=== PATIENT | female | born 1995 | race Caucasian/White ===

== ENCOUNTER 2022-10-21 11:33 | Outpatient (CLI) | payer OTHER, SELFPAY ==
--- NOTE | ~2022-10-21 | XR_ITS ---
EXAMINATION: XR hysterosalpingogram DATE: 10/21/2022 12:17 INDICATION: Infertility. TECHNIQUE: Fluoroscopy was performed by the radiologist during contrast infusion into the endometrial cavity of the uterus by the primary physician. Fluoroscopy exposure time was 0.2 minutes. The total number of images was 5. FINDINGS: The intrauterine cavity is normal in morphology. The fallopian tubes are normal in caliber. There is normal free intraperitoneal spillage of contrast bilaterally. IMPRESSION: 1. Normal hysterosalpingogram. Reviewed, dictated and finalized at location A. [facility]
== END 2022-10-21 11:34 | disposition home or self-care (01) ==
PROVIDERS: PCP Obstetrics & Gynecology; Visit Provider Obstetrics & Gynecology
DX: N97.9 Female infertility, unspecified (principal)
CPT/HCPCS: 58340; 74740

== ENCOUNTER 2023-09-13 16:49 | Outpatient (CLI) | payer OTHER, SELFPAY ==
[2023-09-13] VITALS (10 sets, daily range): BP systolic 130–159; BP diastolic 75–92; PULSE 54–69
[2023-09-13 17:39] LABS: Basophils Percent Auto 0.3 % (0.2-1.2); Eosinophils Absolute Auto 0.1 K/mm3 (0-0.3); Eosinophils Percent Auto 1.1 % (0-4.4); Hematocrit 34.2 % (37.0-47.0); Hemoglobin 11.1 g/dL (12.0-15.0); Immature Granulocyte Absolute 0.06 K/mm3 (0.00-0.031); Immature Granulocyte Percent A 0.7 % (0-0.5); Lymphocytes Absolute Auto 2.09 K/mm3 (0.9-3.2); Lymphocytes Percent Auto 22.8 % (18.3-44.2); Mean Corpuscular HGB Conc 32.5 g/dl (32-36); Mean Corpuscular Hemoglobin 32.6 pg (26-34); Mean Corpuscular Volume 100.6 fl (80-100); Mean Platelet Volume 10.4 fl (7.4-10.4); Monocytes Absolute Auto 1.1 K/mm3 (0.1-0.6); Monocytes Percent Auto 11.7 % (2.6-8.5); Neutrophils Absolute Auto 5.8 K/mm3 (1.3-6.7); Neutrophils Percent Auto 63.4 % (45.5-73.1); Platelet Count Result 216 k/mm3 (150-375); Red Cell Distribution Width 12.9 % (11.5-14.5); White Blood Count 9.2 K/mm3 (4.5-10.0)
[2023-09-13 17:49] LABS: Alanine Aminotransferase 15 U/L (6-35); Alkaline Phosphatase 155 U/L (38-126); Anion Gap 5 mmol/L (8-16); Aspartate Amino Transferase 29 U/L (14-36); Bilirubin,Total 0.3 mg/dL (0.2-1.3); Blood Urea Nitrogen 12 mg/dL (7-17); Calcium 8.3 mg/dL (8.4-10.2); Carbon Dioxide 18 mmol/L (22-30); Chloride 108 mmol/L (98-107); Estimated Glomerular Filt Rate > 60; Glucose 84 mg/dL (65-110); Potassium 3.8 mmol/L (3.4-5.0); Sodium 131 mmol/L (137-145); Uric Acid 5.7 mg/dL (2.5-7.5)
[2023-09-13 18:11] LABS: Appearance Urine Clear (Clear); Bacteria Urine 4+ /hpf; Bilirubin Urine Negative (Negative); Blood Urine Negative (Negative); Color Urine Yellow (Yellow); Glucose Urine UA Negative (Negative); Ketones Urine Negative (Negative); Leukocyte Esterase Ur 2+ LEU/UL (NEGATIVE); Nitrate Urine Positive (Negative); Non Pathogenic Casts 0-2; Protein Urine 2+ mg/dL (Negative); RBC Urine 0-2 /hpf (0-2); Specific Grav Ur 1.009 (1.001-1.035); Squamous Epithelial Cell Urine Occasional /hpf (Few); Urobilinogen Urine 0.2 mg/dL (<2.0); WBC Urine 51-100 /hpf (0-3); pH Urine 7.5 (5.0-9.0)
[2023-09-13 18:30] LABS: Add Urine Microscopic? YES
[2023-09-13 18:35] LABS: Creatinine Urine 46.2 mg/dL; Total Protein Urine Random 161 mg/dL; Ur Ttl Prot Creatinine Ratio 3.48 mg/mg (0-0.20)
--- NOTE | 2023-09-13 19:09 | PC.NURSE ---
called Dr. Elsa Sutherland reported BP and PIH lab result. discharge order received with follow up office for BP on wed or
== END 2023-09-13 19:10 | disposition home or self-care (01) ==
LOC: ANHOBOP 16:57 → ANHLDR 16:57
PROVIDERS: Visit Provider Obstetrics & Gynecology
DX: O13.9 Gestational [pregnancy-induced] hypertension without significant proteinuria, unspecified trimester (principal); Z3A.00 Weeks of gestation of pregnancy not specified
CPT/HCPCS: 36415; 59025; 80053; 81001; 82570; 84156; 84550; 85025; 87077; 87086; 87186; 99199

== ENCOUNTER 2023-09-21 15:01 | Inpatient (IN) | payer OTHER, SELFPAY ==
[2023-09-21] VITALS (12 sets, daily range): BP systolic 138–164; BP diastolic 66–96; PULSE 53–77; RESP 18; TEMP 36.4–36.9; O2SAT 96; BMI 28.3
--- NOTE | 2023-09-21 15:49 | PC.NURSE ---
Dr. Elsa Sutherland returned page and informed this 36 wk G1 here for NST due to hypertension in and BP's have been 148/96 and 145/91. Pt last had labs done on 09/13. Pt denies headache, visual disturbance, epigastric RUQ pain, pitting edema in ankles, and normal reflexes. Order received to draw labs and give a dose of Celestone.
--- NOTE | 2023-09-21 15:55 | PC.NURSE ---
Pt informed of plan to draw labs and give Celestone. Discussed purpose of Celestone with pt. Pt verbalizes understanding.
--- NOTE | 2023-09-21 16:04 | PM.OBTRLD ---
OB - Triage/Final Diagnosis Visit Information Date of evaluation: 09/21/23 Reason for evaluation: other (gestational hypertension) Comments/Additional reasons for admission: I have assessed the risk for this patient, Romina Ferrari, and determined that she would benefit from observation care.
[2023-09-21] MEDS: BETAMETHASONE SOD PHOS/ACETATE 30 MG/5 ML VIAL 12 MG IM (16:34)
--- NOTE | 2023-09-21 16:52 | PC.NURSE ---
Dr. Elsa Sutherland returned page and informed of lab results with comparison to results from 09/13. Informed pt had a BP of 170/97 when Ashley Duncan RN went into pt room to give the Celestone. Repeat was 155/95. Order received to discharge to home to complete 24 hr urine and bring back tomorrow when she comes for repeat Celestone and do a BP check.
--- NOTE | 2023-09-21 17:04 | PC.NURSE ---
Dr. Elsa Sutherland returned page and informed pt's last BP was 160/95 and she reported having some spots in her vision earlier that have resolved. Orders received to change to observation status for pt to stay overnight and complete 24 hr urine. Orders received to start Labetalol and NST q 8 hr.
--- NOTE | 2023-09-21 17:10 | PC.NURSE ---
24 hr urine start time is 1600
[2023-09-21] MEDS: LABETALOL HCL 100 MG TABLET 200 MG PO (17:45)
--- NOTE | 2023-09-21 17:45 | OBADM ---
This patient, Romina Ferrari, admitted to the OB room 113 for observation for hypertension in . Patient/family oriented to hospital policies and general routines including ID bracelet, bed and alarms, visiting hours, pain management, procedures, bathroom and other care routines, personal items, smoking policy, room service/diet, and visiting hours. Patient/Family are encouraged to report perceived risks to care and to ask questions if they do not understand what they are told or what they should do.
[2023-09-21 21:26] LABS: Appearance Urine Clear (Clear); Bacteria Urine 1+ /hpf; Bilirubin Urine Negative (Negative); Blood Urine Negative (Negative); Color Urine Yellow (Yellow); Glucose Urine UA Negative (Negative); Ketones Urine Negative (Negative); Leukocyte Esterase Ur 1+ LEU/UL (Negative); Nitrate Urine Positive (Negative); Non Pathogenic Casts 0-2; Protein Urine 3+ mg/dL (Negative); RBC Urine 0-2 /hpf (0-2); Specific Grav Ur 1.009 (1.001-1.035); Squamous Epithelial Cell Urine None seen /hpf (Few); Urobilinogen Urine 0.2 mg/dL (<2.0)
[2023-09-21 21:29] LABS: Add Urine Microscopic? YES
[2023-09-22] VITALS (18 sets, daily range): BP systolic 128–158; BP diastolic 63–94; PULSE 70–94; TEMP 36.4–36.6; O2SAT 93–98; BMI 28.3
--- NOTE | 2023-09-22 06:57 | PM.IMHP ---
H&P: HPI History of Present Illness Date/Time: 09/22/23 06:57 Chief Complaint: Elevated blood pressures Narrative: this is a 28-year-old 1 para 0 who is admitted for observation secondary to elevated blood pressures. Her blood pressures been up for about week. Earlier she had some headache and some visual changes but that has improved. PIH labs so far been normal. She is admitted for observation and steroids at 36 and half weeks gestation. [facility] Family History Family History Sibling Non-Hodgkin lymphoma Grandparent Oral cancer Social History Social History Substance use: never Spiritual care concerns: No Meds Home Medications and Allergies Home Medications Medication Instructions Recorded Confirmed Type vits no.126-ferrous fum 1 tablet PO DAILY 09/21/23 09/21/23 History 28 mg iron-folic acid 800 mcg tablet (Classic ) Allergies Allergy/AdvReac Type Severity Reaction Status Date / Time No Known Allergies Allergy Verified 09/21/23 15:12 Vital Signs Vital Signs - 24 hr 09/21/23 17:30 09/21/23 17:44 09/21/23 18:00 Temperature Pulse Rate 66 55 L 53 L Respiratory Rate Blood Pressure 145/91 H 164/88 H 155/90 H Blood Pressure [Left Arm] Pulse Oximetry Oxygen Delivery 09/21/23 18:30 09/21/23 18:32 09/21/23 19:00 Temperature Pulse Rate 70 63 62 Respiratory Rate Blood Pressure 148/90 H 163/84 H 147/82 H Blood Pressure [Left Arm] Pulse Oximetry Oxygen Delivery 09/21/23 19:16 09/21/23 15:40 09/21/23 17:00 Temperature 97.5 F L Pulse Rate 67 56 L Respiratory Rate Blood Pressure 148/96 H 160/95 H Blood Pressure [Left Arm] Pulse Oximetry Oxygen Delivery 09/21/23 21:28 09/21/23 22:31 09/22/23 03:01 Temperature Pulse Rate 77 66 82 Respiratory Rate Blood Pressure 141/73 H 138/66 152/89 H Blood Pressure [Left Arm] Pulse Oximetry 96 Oxygen Delivery 09/22/23 06:48 09/21/23 17:45 09/21/23 17:45 Temperature 98.4 F Pulse Rate 89 56 L 56 L Respiratory Rate 18 Blood Pressure 138/83 164/88 H Blood Pressure [Left Arm] Pulse Oximetry Oxygen Delivery 09/21/23 17:45 09/21/23 15:40 Temperature Pulse Rate 60 Respiratory Rate Blood Pressure Blood Pressure [Left Arm] 148/96 H Pulse Oximetry Oxygen Delivery Room Air Exam Const: General: cooperative, healthy appearing and comfortable Nutritional Appearance: average body habitus Orientation/consciousness: oriented to person, oriented to place and oriented to time HENMT: Head: normal to inspection Resp: Effort & Inspection: normal respiratory effort Cardio: Rate: regular rate Rhythm: regular rhythm Heart sounds: S1 normal heart sound present and S2 normal heart sound present GI: Inspection: normal to inspection ( Soft gravid uterus) : External Female Exam: normal external appearance Speculum Exam - Vagina: normal appearance of the vagina Speculum Exam - Cervix: Other cervical findings present ( heart tones were reassuring) H&P: Results Labs Labs: Urine 09/21/23 Range/Units 16:09 Urine Color Yellow (Yellow) Urine Appearance Clear (Clear) Urine pH 7.0 (5.0-9.0) Ur Specific [place] 1.009 (1.001-1.035) Urine Protein 3+ H (Negative) mg/dL Urine Glucose (UA) Negative (Negative) mg/dL Assessment and Plan Assessment and plan (1) 36 weeks gestation of : Code(s): Z3A.36 - 36 weeks gestation of Status: Acute (2) Gestational hypertension: Code(s): O13.9 - Gestational [-induced] hypertension without significant proteinuria, unspecified trimester Status: Acute Plan observation. 24hour urine. Labetalol treatment. Steroids. Consider delivery with if worsening
--- NOTE | 2023-09-22 07:08 | PC.NURSE ---
RN at bedside to perform head to toe assessment. Patient denies headache, vision changes, new edema, abdominal pain. Patient has slight edema in bilateral ankles. Nonpitting. MD at bedside speaking with patient. Patient to stay today at least long enough to receive second dose of steroids and receive results of 24 hour urine collection. Patient and spouse agree with plan of care and have no questions at this time.
[2023-09-22] MEDS: LABETALOL HCL 100 MG TABLET 200 MG PO ×2 (08:14→16:21)
--- NOTE | 2023-09-22 16:19 | PM.OBPNLAB ---
Pain Control Date/time seen: 09/22/23 16:19 Comments: BP well controlled on labetalol. Waiting 24hour urine. Will receive steroid and hope for delivery at 37 weeks
[2023-09-22] MEDS: BETAMETHASONE SOD PHOS/ACETATE 30 MG/5 ML VIAL 12 MG IM (16:22)
[2023-09-22 16:58] LABS: Collection Time Urine 24 HOURS
[2023-09-22 17:05] LABS: Patient Weight 175 Lbs; Total Volume 24 Hour Urine 1800 ml
[2023-09-22 17:12] LABS: Creatinine Clearance Urine 114.4 ml/min (75-125); Creatinine Urine 89.7 mg/dL
[2023-09-22 17:19] LABS: Total Protein Urine 24 Hr 8352 mg/24hr (28-141); Total Protein Urine Random 464 mg/dL
--- NOTE | 2023-09-22 17:31 | PC.NURSE ---
MD notified of elevated 24 hour urine results. Orders received to keep patient and induce.
--- NOTE | 2023-09-22 18:26 | LDADM ---
This patient, Romina Ferrari, was admitted to Labor/Delivery/Recovery 105 on 09/22/23 at 17:50. Plans for labor, pain management and were discussed with patient. Patient/family oriented to hospital policies and general routines including ID bracelet, bed and alarms, visiting hours, pain management, procedures, bathroom and other care routines, personal items, smoking policy, room service/diet and guest tray routines, security routines, and visiting hours. Patient/Family are encouraged to report perceived risks to care and to ask questions if they do not understand what they are told or what they should do. See OBIX for further documentation.
[2023-09-22 18:47] LABS: Basophils Percent Auto 0.1 % (0.2-1.2); Hematocrit 32.9 % (37.0-47.0); Immature Granulocyte Absolute 0.21 K/mm3 (0.00-0.031); Immature Granulocyte Percent A 1.5 % (0-0.5); Lymphocytes Absolute Auto 1.38 K/mm3 (0.9-3.2); Lymphocytes Percent Auto 9.8 % (18.3-44.2); Mean Corpuscular HGB Conc 33.4 g/dl (32-36); Mean Corpuscular Hemoglobin 32.5 pg (26-34); Mean Corpuscular Volume 97.3 fl (80-100); Mean Platelet Volume 10.7 fl (7.4-10.4); Monocytes Absolute Auto 1.3 K/mm3 (0.1-0.6); Monocytes Percent Auto 9.1 % (2.6-8.5); Neutrophils Absolute Auto 11.1 K/mm3 (1.3-6.7); Neutrophils Percent Auto 79.5 % (45.5-73.1); Platelet Count Result 218 k/mm3 (150-375); Red Blood Count 3.38 M/mm3 (4.2-5.4); Red Cell Distribution Width 12.8 % (11.5-14.5)
[2023-09-22] MEDS: DINOPROSTONE 10 MG VAG INSERT VAGINAL (19:20)
[2023-09-22] MEDS: AMPICILLIN 2 GM/NS 100 ML 2 GM/100 ML BAG IVPB (19:30)
[2023-09-22] MEDS: LACTATED RINGERS 1,000 ML 75 ML IV CONT (20:13)
[2023-09-22] MEDS: AMPICILLIN 1 GM/NS 50 ML 1 GM/50 ML BAG IVPB (23:10)
[2023-09-22] MEDS: ZOLPIDEM TARTRATE (*CRX) 5 MG TABLET PO (23:10)
[2023-09-23] VITALS (186 sets, daily range): BP systolic 121–181; BP diastolic 66–121; PULSE 49–127; RESP 16; TEMP 36.5–37.1; O2SAT 91–98
[2023-09-23] MEDS: AMPICILLIN 1 GM/NS 50 ML 1 GM/50 ML BAG IVPB ×4 (03:05→15:55)
[2023-09-23] MEDS: LABETALOL HCL 100 MG TABLET 200 MG PO ×4 (03:17→13:02)
--- NOTE | 2023-09-23 06:36 | PM.OBPNLAB ---
Pain Control Date/time seen: 09/23/23 06:36 Comments: spilling 8000 g protein. bp ok on labetolol. Pelvic Exam Dilation (cm): 1 Effacement (%): 50 station: -1 Comments: attempted arom
[2023-09-23] MEDS: OXYTOCIN 30 UNITS/NS 500 ML 30 UNITS/500 ML BAG 6 UNITS IV CONT (07:50)
[2023-09-23] MEDS: LACTATED RINGERS 1,000 ML 75 ML IV CONT (08:36)
--- NOTE | 2023-09-23 10:55 | WPDANESEPP ---
Anes - Eval Pre Procedure Procedure: labor epidural Date/Time: 09/23/23 10:55 Preop Diagnosis: labor pain Pre Op Diagnosis: Hypotension in Patient Data Age: 28 Gender: F Height: 1.68 m Weight: 79.5 kg Last Vital Signs Temp 37.1 C 09/23/23 08:00 Pulse 62 09/23/23 10:53 Resp 16 09/23/23 03:04 BP 129/96 H 09/23/23 10:53 Pulse Ox 96 09/23/23 10:53 O2 Del Method Room Air 09/21/23 17:45 Allergies Allergy/AdvReac Type Severity Reaction Status Date / Time No Known Allergies Allergy Verified 09/22/23 18:23 Home Medications Medication Instructions Recorded Confirmed Type vits no.126-ferrous fum 1 tablet PO DAILY 09/21/23 09/22/23 History 28 mg iron-folic acid 800 mcg tablet (Classic ) Laboratory Tests 09/22/23 09/22/23 16:20 18:03 WBC 14.0 H K/mm3 (4.5-10.0) RBC 3.38 L M/mm3 (4.2-5.4) Hgb 11.0 L g/dL (12.0-15.0) Hct 32.9 L % (37.0-47.0) MCV 97.3 fl (80-100) MCH 32.5 pg (26-34) MCHC 33.4 g/dl (32-36) RDW 12.8 % (11.5-14.5) Plt Count 218 k/mm3 (150-375) MPV 10.7 H fl (7.4-10.4) Immature Gran % (Auto) 1.5 H % (0-0.5) Neut % (Auto) 79.5 H % (45.5-73.1) Lymph % (Auto) 9.8 L % (18.3-44.2) [place] % (Auto) 9.1 H % (2.6-8.5) Eos % (Auto) 0.0 % (0-4.4) Baso % (Auto) 0.1 L % (0.2-1.2) Lymph # (Auto) 1.38 K/mm3 (0.9-3.2) [place] # (Auto) 1.3 H K/mm3 (0.1-0.6) Eos # (Auto) 0.0 K/mm3 (0-0.3) Baso # (Auto) 0.0 K/mm3 (0.0-0.1) Abs Immat Gran (auto) 0.21 H K/mm3 (0.00-0.031) Absolute Neuts (auto) 11.1 H K/mm3 (1.3-6.7) Absolute Nucleated RBC 0.0 K/mm3 (0.0-0.012) Nucleated RBC % 0.0 % (0.0-0.2) U Random Total Protein 464 mg/dL Ur 24 Hour Volume 1800 ml Urine Creatinine 89.7 mg/dL Creatinine Clearance 114.4 ml/min (75-125) Ur Total Protein 24 Hr 8352 H mg/24hr (28-141) RPR Pending Blood Type O Positive Antibody Screen Negative Patient hx anesthesia problems: none Family hx anesthesia problems: none Results Review: All pre-operative results and documents have been reviewed as part of the pre-operative evaluation. [facility] Family History Family History Sibling Non-Hodgkin lymphoma Grandparent Oral cancer Social History Social History Smoking status: Never smoker Substance use: never Lack of Transportation: No Lack of Food: Never True Current Housing: I Have Housing Concerned About Future Housing: No Difficulty Paying Gas/Electric Bills: No Difficulty Paying for Meds: No Currently Unemployed: No Education: Master's Degree or Higher Difficulty w/ Childcare or Family Care: No Spiritual care concerns: No Exam Day of Procedure 09/23/23 10:55
--- NOTE | 2023-09-23 12:14 | PM.OBPNLAB ---
Pain Control Date/time seen: 09/23/23 12:14 Pain control: tolerating well and epidural Pelvic Exam Dilation (cm): 3 Effacement (%): 80 station: -1 Amniotic membrane status: Leaking Contractions Monitor mode: Internal
[2023-09-23] MEDS: SODIUM CHLORIDE 0.9% IV 300 ML 600 ML I-UTERINE (12:59)
[2023-09-23] MEDS: SODIUM CHLORIDE 0.9% IV 1,000 ML 150 ML I-UTERINE (15:30)
--- NOTE | 2023-09-23 16:18 | PM.OBPNLAB ---
Pain Control Date/time seen: 09/23/23 16:18 Pain control: tolerating well and epidural Comments: earlir variables improved on amnioinfusion Pelvic Exam Dilation (cm): 3 Effacement (%): 80 station: -1 Amniotic membrane status: Leaking Contractions Monitor mode: Internal
[2023-09-23 17:00] LABS: Rapid Plasma Reagin Non-Reactive (NonReactive)
--- NOTE | 2023-09-23 17:44 | PM.OBPNLAB ---
Pain Control Date/time seen: 09/23/23 17:44 Pain control: tolerating well and epidural Comments: Still relatively no change in the cervix with some open down variables. Blood pressure is not worsening. In later for lack of change and increasing blood pressure as well as failure of change in cervix after section. Risks and benefits reviewed great detail. She is agreeable to proceed Pelvic Exam Dilation (cm): 3 Effacement (%): 80 station: -1 Amniotic membrane status: Leaking Contractions Monitor mode: Internal
[2023-09-23] MEDS: AZITHROMYCIN 500 MG/NS 250 ML 500 MG/250 ML BAG 250 MG IVPB (17:59)
--- NOTE | 2023-09-23 19:20 | P.PCNOB_ITS ---
OB - Delivery Note Procedure Delivery date: 09/23/23 Pre-op diagnosis: Failed Induction of Labor and Preeclampsia w/o severe features Post-op Diagnosis: Same Induction method: Per Cervidil Protocol Delivery augmentation: Rupture of Membranes and Pitocin Delivery monitor: External FHT and Internal Uterine Procedure Performed: Primary Surgeon: Librado Sutherland MD Anesthesia type: Epidural Description of Procedure/Findings: The patient was taken to the back for and prepped and draped in normal sterile fashion. Under excellent epidural anesthesia the abdomen was entered Pfannenstiel fashion progressive layers to the fascia. Fascia incised midline cure number not fashion bilaterally. Underlying muscles were sharply dissected. Parietal peritoneal by Annabel clamps and by sharp dissection care. This was carried superiorly and inferiorly down the bladder. A bladder flap was formed. The bladder bladder blade returned. A low transverse incision made the head delivered in the JC position. Nuchal cord was noted to be loose x2 renal occiput. Anterior posterior shoulder delivered spontaneously. Cord clamped 15. Table with the to the waiting fiction and nonfiction prose writer. Placenta was delivered intact manually. Uterus delivered from the abdomen wrapped in a moist towel. After assuring no membranes remained in the uterus, the uterus was closed in continuous running 0 Vicryl from lateral edge to lateral edge. This was followed by 2nd imbricating running locking 0 Vicryl from lateral edge to lateral edge. Hemostasis was assured. Ovaries and tubes appeared within normal limits. Uterus returned to the abdomen. The hysterotomy incision SPECT of 1 last time noted hemostatic. Laps removed and accounted for. The fascia closed with continuous running 0 Vicryl from lateral edge to midline bilaterally. Irrigation subcutaneous layer and the skin closed with 4 Monocryl and glue. All sponge, needle, instrument counts were correct. Patient went to recovery in satisfactory condition Specimen: No Estimated Blood Loss: 455 Urine Output: 500 Drains: No Packing: No Pathology: None sent Complications: No immediate complications Condition: Stable Disposition: Floor Porter Baby Date of : 09/23/23 Time of : 19:00 Weeks of gestation at delivery: 36 Infant gender: Female Weight (pounds): 5 Weight (ounces): 10 presentation: vertex position: Right Occiput Anterior Cord Vessel Description: 3 Vessels, Nuchal Cord, Tight (x2) and Reduced score one minute: 6 score five minutes: 9
[2023-09-23] MEDS: LABETALOL HCL 100 MG TABLET 200 MG (20:39)
--- NOTE | 2023-09-23 21:52 | PC.NURSE ---
Patient transferred to post room #291 per stretcher from labor and delivery. Support person present. Oriented to unit, room, information board, rooming in, admission packet and security measures. Patient verbalizes understanding.
[2023-09-24] VITALS (7 sets, daily range): BP systolic 131–151; BP diastolic 73–83; PULSE 56–64; RESP 16–20; TEMP 36.5–37.1; O2SAT 96–97
[2023-09-24] MEDS: DEXTROSE 5%/0.45% SOD CHL 1,000 ML 125 ML IV CONT
[2023-09-24 05:42] LABS: Basophils Percent Auto 0.2 % (0.2-1.2); Hematocrit 28.4 % (37.0-47.0); Hemoglobin 9.4 g/dL (12.0-15.0); Immature Granulocyte Percent A 1.2 % (0-0.5); Lymphocytes Absolute Auto 1.38 K/mm3 (0.9-3.2); Lymphocytes Percent Auto 8.5 % (18.3-44.2); Mean Corpuscular HGB Conc 33.1 g/dl (32-36); Mean Corpuscular Hemoglobin 33.2 pg (26-34); Mean Corpuscular Volume 100.4 fl (80-100); Mean Platelet Volume 10.7 fl (7.4-10.4); Monocytes Absolute Auto 1.8 K/mm3 (0.1-0.6); Monocytes Percent Auto 10.7 % (2.6-8.5); Neutrophils Percent Auto 79.4 % (45.5-73.1); Nucleated Red Blood Cells Perc 0.2 % (0.0-0.2); Platelet Count Result 173 k/mm3 (150-375); Red Blood Count 2.83 M/mm3 (4.2-5.4); White Blood Count 16.3 K/mm3 (4.5-10.0)
--- NOTE | 2023-09-24 07:00 | PM.OBPNVD ---
OB - PN: Subj Subjective Date/time seen: 09/24/23 07:00 Patient comments: no complaints and pain well controlled baby status: doing well OB - PN: Obj Data Labs 09/24/23 05:31 Labs: Laboratory Results - last 24 hr 09/22/23 09/24/23 18:03 05:31 WBC 16.3 H RBC 2.83 L Hgb 9.4 L Hct 28.4 L MCV 100.4 H MCH 33.2 MCHC 33.1 RDW 13.0 Plt Count 173 MPV 10.7 H Immature Gran % (Auto) 1.2 H Neut % (Auto) 79.4 H Lymph % (Auto) 8.5 L [place] % (Auto) 10.7 H Eos % (Auto) 0.0 Baso % (Auto) 0.2 Lymph # (Auto) 1.38 [place] # (Auto) 1.8 H Eos # (Auto) 0.0 Baso # (Auto) 0.0 Abs Immat Gran (auto) 0.20 H Absolute Neuts (auto) 13.0 H Absolute Nucleated RBC 0.0 Nucleated RBC % 0.2 RPR Non-reactive OB - PN A/P Plan day: 1 Plan: routine care Comments: contiue labetolo Time Spent With Patient Time: Total time spent is greater than 50% in coordination of care (as documented) at patient's floor/unit and/or counseling patient: Exam Const: General: cooperative, healthy appearing and comfortable Nutritional Appearance: average body habitus Orientation/consciousness: oriented to person, oriented to place and oriented to time HENMT: Head: normal to inspection Resp: Effort & Inspection: normal respiratory effort Cardio: Rate: regular rate Rhythm: regular rhythm Heart sounds: S1 normal heart sound present and S2 normal heart sound present GI: Inspection: normal to inspection and incision (cdi)
[2023-09-24] MEDS: DOCUSATE SODIUM 100 MG CAPSULE PO ×2 (08:19→16:44)
[2023-09-24] MEDS: LABETALOL HCL 100 MG TABLET 200 MG PO ×3 (08:20→22:31)
[2023-09-24] MEDS: POLYSACCHARIDE IRON COMPLEX 150 MG CAPSULE PO ×2 (08:20→16:44)
[2023-09-24] MEDS: HYDROcodone/acetaminophen (*CRX) 5-325 MG TABLET 1 TAB PO ×2 (08:21→23:45)
[2023-09-24] MEDS: MULTIVIT/MIN/PREN/FOL AC/IRON TABLET 1 TAB PO (08:21)
--- NOTE | 2023-09-24 08:26 | PM.DS ---
DS: Admitting Diagnosis Discharge Date 09/28/2023 Admitting Diagnosis Gestational hypertension at 36 weeks DS: Discharge Diagnosis Discharge Diagnosis (1) induced hypertension, delivered, current hospitalization: Code(s): O13.4 - Gestational [-induced] hypertension without significant proteinuria, complicating childbirth Status: Acute (2) 36 weeks gestation of : Code(s): Z3A.36 - 36 weeks gestation of Status: Acute (3) Gestational hypertension: Code(s): O13.9 - Gestational [-induced] hypertension without significant proteinuria, unspecified trimester Status: Acute DS: Summary Hospital Course Reason for hospitalization: The patient was admitted at 36 weeks gestation for observation workup Hospital Course: Patient is a 24 each was markedly abnormal consistent with severe -induced hypertension she underwent induction labor secondary to these elevated blood pressures findings. She to 3. Hospital course she afebrile blood pressures were controlled on labetalol 200 mg 3 times a day she was up, ambulating, eating regular diet voiding without difficulty without. All Time Spent with Patient Time attestation: Total time spent providing and/or coordinating discharge services: Exam Const: General: cooperative, healthy appearing and comfortable Nutritional Appearance: average body habitus Orientation/consciousness: oriented to person, oriented to place and oriented to time HENMT: Head: normal to inspection Resp: Effort & Inspection: normal respiratory effort Cardio: Rate: regular rate Rhythm: regular rhythm Heart sounds: S1 normal heart sound present and S2 normal heart sound present GI: Inspection: normal to inspection and incision (Wound clean dry and intact) DS: Data Data Completed and Pending Labs on day of discharge: Labs from last 24 hours 09/24/23 09/22/23 05:31 18:03 WBC 16.3 H RBC 2.83 L Hgb 9.4 L Hct 28.4 L MCV 100.4 H MCH 33.2 MCHC 33.1 RDW 13.0 Plt Count 173 MPV 10.7 H Immature Gran % (Auto) 1.2 H Neut % (Auto) 79.4 H Lymph % (Auto) 8.5 L [place] % (Auto) 10.7 H Eos % (Auto) 0.0 Baso % (Auto) 0.2 Lymph # (Auto) 1.38 [place] # (Auto) 1.8 H Eos # (Auto) 0.0 Baso # (Auto) 0.0 Abs Immat Gran (auto) 0.20 H Absolute Neuts (auto) 13.0 H Absolute Nucleated RBC 0.0 Nucleated RBC % 0.2 RPR Non-reactive Preliminary micro results at discharge 09/21/23 16:09 Urine Culture - Preliminary Urine Clean Catch Escherichia Coli Discharge Plan Discharge Attending physician on discharge: Librado Kelsey Discharging Clinician: Librado Kelsey Patient Disposition: Home, Self-Care Activity: may shower and pelvic rest Diet: heart healthy Patient Instructions: Antibiotic Form Stand Alone Forms: General Discharge Information Follow-up/Referrals: Librado Kelsey MD [Physician] - Discharge Medications: New hydrocodone-acetaminophen 5-325 mg tablet 1 tablet PO Q4H PRN (Reason: pain) Qty: 20 0RF nifedipine [Procardia XL] 60 mg tablet extended release 24hr 60 mg PO DAILY Qty: 60 0RF No Action Classic 28 mg iron- 800 mcg Tablet 1 tablet PO DAILY Date of admission: 09/22/23 17:50 Primary Care Provider: PHYSICIAN,PLY CUTTER Admitting Provider: Librado Kelsey Attending physician on admission: Librado Kelsey Condition: Stable
--- NOTE | 2023-09-24 09:20 | WPDANLDPN2 ---
Anes-Prog Note L&D Date/Time: 09/24/23 09:20 Comfortable throughout: section Neuraxial method: epidural Epidural/Spinal procedure site: clean & non-tender Neuro status: Neuro function grossly intact. Cardiovascular status: normal Respiratory status: normal Airway patency: baseline Mental status: baseline Post-Op hydration status: normal Vital Signs: Last Vital Signs Temp 36.8 C 09/24/23 05:30 Pulse 64 09/24/23 08:20 Resp 18 09/24/23 05:30 BP 145/78 H 09/24/23 05:30 Pulse Ox 94 09/23/23 21:45 O2 Del Method Room Air 09/21/23 17:45 Pain score (VAS): 3/10 I/O: Intake & Output 09/23/23 09/24/23 09/24/23 23:59 07:59 15:59 Intake Total 500 Output Total 500 400 Balance -500 100 Post-procedural complaints: none Patient feedback: Patient satisfied with anesthetic care.
--- NOTE | 2023-09-24 09:21 | WPDANLDNPN2 ---
Anes-Prog Note L&D-Neuraxial Date/Time: 09/24/23 09:21 Neuraxial medications: epidural PF morphine Opiod-related complaints: none Patient feedback: Patient satisfied with post-operative pain management.
[2023-09-24] MEDS: HYDROcodone/acetaminophen (*CRX) 10-325 MG TABLET 1 TAB PO ×3 (12:12→20:37)
--- NOTE | 2023-09-24 14:10 | PC.NURSE ---
Breast pump provided due to ineffective feedings. Instructions given on cleaning, care, usage, that there should be no pain, pumping schedule for milk production, collection, and storage of human milk. Patient was assessed for correct placement, flange size, to pump for comfort and nipple stretching/stimulation for adequate milk production every 3 hours (8 times in 24 hours) 1-2 times at night.
[2023-09-25 00:15] VITALS: BP 149/81; PULSE 57
[2023-09-25] MEDS: LABETALOL HCL 100 MG TABLET 200 MG PO ×3 (05:17→19:35)
[2023-09-25] MEDS: HYDROcodone/acetaminophen (*CRX) 10-325 MG TABLET 1 TAB PO ×3 (05:17→21:42)
[2023-09-25] MEDS: IBUPROFEN 600 MG TABLET PO ×2 (05:18→13:49)
--- NOTE | 2023-09-25 05:50 | PM.OBPNVD ---
OB - PN: Subj Subjective Date/time seen: 09/25/23 05:50 Patient comments: no complaints and pain well controlled baby status: doing well and nursing well OB - PN: Obj Data Labs 09/24/23 05:31 Labs: Laboratory Results - last 24 hr 09/24/23 05:31 WBC 16.3 H RBC 2.83 L Hgb 9.4 L Hct 28.4 L MCV 100.4 H MCH 33.2 MCHC 33.1 RDW 13.0 Plt Count 173 MPV 10.7 H Immature Gran % (Auto) 1.2 H Neut % (Auto) 79.4 H Lymph % (Auto) 8.5 L [place] % (Auto) 10.7 H Eos % (Auto) 0.0 Baso % (Auto) 0.2 Lymph # (Auto) 1.38 [place] # (Auto) 1.8 H Eos # (Auto) 0.0 Baso # (Auto) 0.0 Abs Immat Gran (auto) 0.20 H Absolute Neuts (auto) 13.0 H Absolute Nucleated RBC 0.0 Nucleated RBC % 0.2 OB - PN A/P Plan day: 2 Plan: routine care Time Spent With Patient Time: Total time spent is greater than 50% in coordination of care (as documented) at patient's floor/unit and/or counseling patient: Time with patient: less than 15 minutes Exam Const: General: cooperative, healthy appearing and comfortable Nutritional Appearance: average body habitus Orientation/consciousness: oriented to person, oriented to place and oriented to time HENMT: Head: normal to inspection Resp: Effort & Inspection: normal respiratory effort Cardio: Rate: regular rate Rhythm: regular rhythm Heart sounds: S1 normal heart sound present and S2 normal heart sound present GI: Inspection: normal to inspection and incision (cdi)
[2023-09-25 08:15] VITALS: BP 151/88; PULSE 64; RESP 18; TEMP 36.9; O2SAT 96
[2023-09-25] MEDS: MULTIVIT/MIN/PREN/FOL AC/IRON TABLET 1 TAB PO (09:31)
[2023-09-25] MEDS: POLYSACCHARIDE IRON COMPLEX 150 MG CAPSULE PO ×2 (09:31→17:09)
[2023-09-25] MEDS: DOCUSATE SODIUM 100 MG CAPSULE PO ×2 (09:31→17:09)
[2023-09-25 13:48] VITALS: PULSE 72
[2023-09-25 19:25] VITALS: BP 172/88; PULSE 64; RESP 18; TEMP 36.9; O2SAT 97
[2023-09-25 19:35] VITALS: PULSE 64
[2023-09-25] MEDS: NIFEdipine 10 MG CAPSULE PO (23:35)
[2023-09-26] VITALS (11 sets, daily range): BP systolic 138–176; BP diastolic 86–104; PULSE 74–85; RESP 18–20; TEMP 36.7–37.1; O2SAT 96
[2023-09-26] MEDS: IBUPROFEN 600 MG TABLET PO ×2 (01:20→22:23)
[2023-09-26] MEDS: HYDROcodone/acetaminophen (*CRX) 5-325 MG TABLET 1 TAB PO (01:31)
--- NOTE | 2023-09-26 04:46 | PM.OBPNVD ---
OB - PN: Subj Subjective Date/time seen: 09/26/23 04:46 Patient comments: no complaints and pain well controlled baby status: doing well OB - PN: Obj Data Labs 09/24/23 05:31 OB - PN A/P Plan day: 3 Plan: routine care, discharge home and follow up 6 weeks (2) Comments: bp was up. Time Spent With Patient Time: Total time spent is greater than 50% in coordination of care (as documented) at patient's floor/unit and/or counseling patient: Time with patient: less than 15 minutes Exam Const: General: cooperative, healthy appearing and comfortable Nutritional Appearance: average body habitus Orientation/consciousness: oriented to person, oriented to place and oriented to time HENMT: Head: normal to inspection Resp: Effort & Inspection: normal respiratory effort Cardio: Rate: regular rate Rhythm: regular rhythm Heart sounds: S1 normal heart sound present and S2 normal heart sound present GI: Inspection: normal to inspection and incision (cdi)
[2023-09-26] MEDS: NIFEdipine 30 MG TAB.ER.24 PO ×2 (05:04→15:58)
[2023-09-26] MEDS: LABETALOL HCL 100 MG TABLET 200 MG PO ×3 (05:04→21:40)
[2023-09-26 06:09] LABS: Hematocrit 31.9 % (37.0-47.0); Hemoglobin 10.4 g/dL (12.0-15.0); Mean Corpuscular HGB Conc 32.6 g/dl (32-36); Mean Corpuscular Hemoglobin 32.6 pg (26-34); Mean Platelet Volume 10.7 fl (7.4-10.4); Platelet Count Result 186 k/mm3 (150-375); Red Blood Count 3.19 M/mm3 (4.2-5.4); Red Cell Distribution Width 13.1 % (11.5-14.5); White Blood Count 13.6 K/mm3 (4.5-10.0)
[2023-09-26 06:18] LABS: Alanine Aminotransferase 21 U/L (6-35); Albumin Level 2.3 g/dL (3.5-5.1); Alkaline Phosphatase 114 U/L (38-126); Anion Gap -1 mmol/L (8-16); Aspartate Amino Transferase 39 U/L (14-36); Bilirubin,Total 0.4 mg/dL (0.2-1.3); Blood Urea Nitrogen 16 mg/dL (7-17); Calcium 8.9 mg/dL (8.4-10.2); Carbon Dioxide 29 mmol/L (22-30); Chloride 104 mmol/L (98-107); Estimated CRCL calculation 124 ml/min; Estimated Glomerular Filt Rate > 60; Glucose 79 mg/dL (65-110); Potassium 3.9 mmol/L (3.4-5.0); Sodium 132 mmol/L (137-145); Uric Acid 6.2 mg/dL (2.5-7.5)
[2023-09-26] MEDS: HYDROcodone/acetaminophen (*CRX) 10-325 MG TABLET 1 TAB PO ×4 (08:21→21:40)
[2023-09-26] MEDS: MULTIVIT/MIN/PREN/FOL AC/IRON TABLET 1 TAB PO (08:21)
[2023-09-26] MEDS: POLYSACCHARIDE IRON COMPLEX 150 MG CAPSULE PO ×2 (08:21→17:04)
[2023-09-26] MEDS: DOCUSATE SODIUM 100 MG CAPSULE PO ×2 (08:21→17:04)
[2023-09-27] VITALS (7 sets, daily range): BP systolic 128–147; BP diastolic 71–97; PULSE 73–88; RESP 16; TEMP 36.4–36.9; O2SAT 96–100
--- NOTE | 2023-09-27 06:51 | PM.OBPNVD ---
OB - PN: Subj Subjective Date/time seen: 09/27/23 06:52 Interval history: Blood pressure still mildly elevated on Procardia XL 60 and labetalol 200 t.i.d.. Will watch through day and hopefully home tomorrow Patient comments: no complaints and pain well controlled baby status: doing well OB - PN: Obj Data Labs 09/26/23 05:09 09/26/23 05:09 OB - PN A/P Plan day: 4 Comments: continue with monitoring of blood pressure. Labs have all been within normal limits Time Spent With Patient Time: Total time spent is greater than 50% in coordination of care (as documented) at patient's floor/unit and/or counseling patient: Time with patient: less than 15 minutes Exam Const: General: cooperative, healthy appearing and comfortable Nutritional Appearance: average body habitus Orientation/consciousness: oriented to person, oriented to place and oriented to time Resp: Effort & Inspection: normal respiratory effort Cardio: Rate: regular rate Rhythm: regular rhythm Heart sounds: S1 normal heart sound present and S2 normal heart sound present GI: Inspection: normal to inspection and incision ( wound is clean dry and intact)
[2023-09-27] MEDS: NIFEdipine 30 MG TAB.ER.24 60 MG PO (08:56)
[2023-09-27] MEDS: LABETALOL HCL 100 MG TABLET 200 MG PO ×2 (08:56→16:35)
[2023-09-27] MEDS: HYDROcodone/acetaminophen (*CRX) 10-325 MG TABLET 1 TAB PO ×2 (08:57→12:15)
[2023-09-27] MEDS: IBUPROFEN 600 MG TABLET PO ×3 (08:58→21:20)
[2023-09-27] MEDS: MULTIVIT/MIN/PREN/FOL AC/IRON TABLET 1 TAB PO (08:59)
[2023-09-27] MEDS: DOCUSATE SODIUM 100 MG CAPSULE PO ×2 (08:59→16:35)
[2023-09-27] MEDS: SIMETHICONE 80 MG TAB.CHEW PO ×2 (08:59→12:15)
--- NOTE | 2023-09-27 14:54 | PC.NURSE ---
Pt remains inpatient to observe for increased blood pressures and s/sx of worsening pre-eclampsia. Continues on Procardia XL and Labetalol TID
[2023-09-28] VITALS: BP 128/69; PULSE 72
[2023-09-28 00:06] VITALS: PULSE 73
[2023-09-28] MEDS: LABETALOL HCL 100 MG TABLET 200 MG PO ×2 (00:06→07:15)
[2023-09-28] MEDS: HYDROcodone/acetaminophen (*CRX) 5-325 MG TABLET 1 TAB PO ×2 (00:06→07:15)
[2023-09-28 03:57] VITALS: BP 150/74
[2023-09-28] MEDS: IBUPROFEN 600 MG TABLET PO ×2 (04:00→13:00)
[2023-09-28 05:33] VITALS: BP 155/88
--- NOTE | 2023-09-28 07:01 | PM.OBPNVD ---
OB - PN: Subj Subjective Date/time seen: 09/28/23 07:01 Interval history: Blood pressure still mildly elevated on Procardia XL 60 and labetalol 200 t.i.d.. Will watch through day and hopefully home tomorrow Patient comments: no complaints and pain well controlled baby status: doing well OB - PN: Obj Data Labs 09/26/23 05:09 09/26/23 05:09 OB - PN A/P Plan day: 5 Plan: routine care, discharge home and follow up 6 weeks (2 weeks) Time Spent With Patient Time: Total time spent is greater than 50% in coordination of care (as documented) at patient's floor/unit and/or counseling patient: Time with patient: less than 15 minutes Exam Const: General: cooperative, healthy appearing and comfortable Nutritional Appearance: average body habitus Orientation/consciousness: oriented to person, oriented to place and oriented to time HENMT: Head: normal to inspection Resp: Effort & Inspection: normal respiratory effort Cardio: Rate: regular rate Rhythm: regular rhythm Heart sounds: S1 normal heart sound present and S2 normal heart sound present GI: Inspection: normal to inspection and incision (cdi)
[2023-09-28 07:15] VITALS: PULSE 76
[2023-09-28] MEDS: MULTIVIT/MIN/PREN/FOL AC/IRON TABLET 1 TAB PO (07:15)
[2023-09-28] MEDS: DOCUSATE SODIUM 100 MG CAPSULE PO (07:15)
[2023-09-28] MEDS: NIFEdipine 30 MG TAB.ER.24 60 MG PO (09:10)
[2023-09-28 12:03] VITALS: BP 131/74; PULSE 72; RESP 16; TEMP 37.2; O2SAT 98
--- NOTE | 2023-09-28 12:18 | PC.NURSE ---
Addendum entered by Jeaneth Rubio RN 09/28/23 12:27: We discussed the late behaviors, cautions, what to watch for and when to call the doctor along with our discussions. Resources from the feeding sheet and mom/baby guide. Original Note: [id number] Consulted with parent after being requested and introductions were made. Report received was mother is pumping and bottle feeding. Mother states she has been putting the infant to breast but feels pain and states infant is not latching deeply. Mother is bottle feeding as RN walks into the room. Encouraged understanding of the benefits of skin to skin (demonstrating unwrapping and placing upright on her chest), stimulating with massage touch, changing positions to encourage wakefulness, how to watch for early feeding cues, responsive feeding, feeding on demand (aiming for 8-12 times in 24 hours, about every 2-3 hours), milk production, hand expression, building/maintaining a milk supply, duration of feeding, signs of adequate intake/output and how to record on the feeding sheet. Reviewed positioning and ear, shoulder, hip alignment, asymmetrical latch (off-center), leading with the chin with a big, open, wide gape and body close to mother. Nipple care reviewed with optimal latch and good positioning. Reminding mother of comfort measures of healing with a warm and wet washcloth to rinse breast, then leave open to air-dry as needed. Reviewed good handwashing when or touching the breast/nipples to prevent infection. Mother voiced understanding of skin to skin, stimulating with massage touch, responsive feedings, hand expressed colostrum, talking to to encourage if it has been 2 -2.5 hours since the start of the last , to call if infant does not latch, or if there is discomfort with . Resources provided for inpatient/outpatient with feeding sheet and the mom/baby guide. Instructions given on cleaning, care, usage, that there should be no pain, pumping schedule for milk production, collection, and storage of human milk. Parents are encouraged to record pumping schedule on the feeding sheet. Patient was assessed for correct placement, flange size, to pump for comfort and nipple stretching/stimulation for adequate milk production every 3 hours (8 times in 24 hours) 1-2 times at night. Recommended paced bottle feeding and the rational for this feeding option. Discussion regarding preventing and care for engorgement and mastitis were had as well. Parents voiced understanding of the education shared along with mom and baby guide and handouts for additional resource information. Reported to the primary RN.
[2023-09-29 10:54] VITALS: BP 134/89; PULSE 90; RESP 18; TEMP 36.4; O2SAT 100
== END 2023-09-28 16:45 | disposition home or self-care (01) | DRG 788 ==
LOC: ANHOBPP 18:18 → ANHLDR 09-22 17:45 → ANHOB2 09-23 23:16
PROVIDERS: Admitting Provider Obstetrics & Gynecology; Visit Provider Obstetrics & Gynecology
PROC: 10D00Z1 Extraction of Products of Conception, Low, Open Approach (ICD-10-PCS; CPT 59514; principal; 2023-09-23 18:15)
DX: O13.4 Gestational [pregnancy-induced] hypertension without significant proteinuria, complicating childbirth (principal); O60.14X0 Preterm labor third trimester with preterm delivery third trimester, not applicable or unspecified; Z37.0 Single live birth; Z3A.36 36 weeks gestation of pregnancy; O14.94 Unspecified pre-eclampsia, complicating childbirth; O99.824 Streptococcus B carrier state complicating childbirth; O69.81X0 Labor and delivery complicated by cord around neck, without compression, not applicable or unspecified; O36.8330 Maternal care for abnormalities of the fetal heart rate or rhythm, third trimester, not applicable or unspecified; O61.8 Other failed induction of labor
CPT/HCPCS: 36415; 59025; 80053; 81001; 81050; 82570; 82575; 84156; 84550; 85025; 85027; 86592; 86850; 86900; 86901; 87077; 87086; 87088; 87186; A9270; J0290; J0456; J0702; J2274; J2590; J2795; J7030; J7120

== ENCOUNTER 2023-09-21 15:01 | Outpatient (RCR) | payer OTHER, SELFPAY ==
[2023-09-17 16:06] VITALS: BP 134/85; PULSE 77
[2023-09-21 16:20] LABS: Basophils Percent Auto 0.3 % (0.2-1.2); Eosinophils Absolute Auto 0.1 K/mm3 (0-0.3); Eosinophils Percent Auto 0.8 % (0-4.4); Hematocrit 35.4 % (37.0-47.0); Hemoglobin 11.7 g/dL (12.0-15.0); Immature Granulocyte Absolute 0.07 K/mm3 (0.00-0.031); Immature Granulocyte Percent A 0.8 % (0-0.5); Lymphocytes Absolute Auto 2.33 K/mm3 (0.9-3.2); Lymphocytes Percent Auto 25.7 % (18.3-44.2); Mean Corpuscular HGB Conc 33.1 g/dl (32-36); Mean Corpuscular Hemoglobin 32.1 pg (26-34); Mean Corpuscular Volume 97.3 fl (80-100); Mean Platelet Volume 10.6 fl (7.4-10.4); Monocytes Absolute Auto 1.1 K/mm3 (0.1-0.6); Monocytes Percent Auto 12.6 % (2.6-8.5); Neutrophils Absolute Auto 5.4 K/mm3 (1.3-6.7); Neutrophils Percent Auto 59.8 % (45.5-73.1); Platelet Count Result 213 k/mm3 (150-375); Red Blood Count 3.64 M/mm3 (4.2-5.4); Red Cell Distribution Width 12.6 % (11.5-14.5); White Blood Count 9.1 K/mm3 (4.5-10.0)
[2023-09-21 16:26] LABS: Creatinine Urine 42.2 mg/dL
[2023-09-21 16:35] LABS: Alanine Aminotransferase 15 U/L (6-35); Albumin Level 2.8 g/dL (3.5-5.1); Alkaline Phosphatase 144 U/L (38-126); Anion Gap 2 mmol/L (8-16); Aspartate Amino Transferase 32 U/L (14-36); Bilirubin,Total 0.3 mg/dL (0.2-1.3); Blood Urea Nitrogen 19 mg/dL (7-17); Calcium 8.4 mg/dL (8.4-10.2); Carbon Dioxide 22 mmol/L (22-30); Chloride 108 mmol/L (98-107); Estimated Glomerular Filt Rate > 60; Glucose 75 mg/dL (65-110); Potassium 4.1 mmol/L (3.4-5.0); Sodium 132 mmol/L (137-145); Uric Acid 6.9 mg/dL (2.5-7.5)
[2023-09-21 16:42] LABS: Total Protein Urine Random 289 mg/dL; Ur Ttl Prot Creatinine Ratio 6.85 mg/mg (0-0.20)
--- NOTE | 2023-09-21 17:10 | PC.NURSE ---
This pt was changed from NST to observation status. See OBS V# for documentation.
== END 2023-09-21 16:00 | disposition home or self-care (01) ==
LOC: ANHOBOP 15:01
PROVIDERS: Visit Provider Obstetrics & Gynecology
DX: O16.3 Unspecified maternal hypertension, third trimester (principal); Z3A.35 35 weeks gestation of pregnancy
CPT/HCPCS: 36415; 59025; 80053; 82570; 84156; 84550; 85025

== ENCOUNTER 2023-09-30 12:30 | Outpatient (CLI) | payer OTHER, SELFPAY ==
[2023-09-30 12:39] VITALS: BP 147/98; PULSE 76
--- NOTE | 2023-09-30 13:12 | WPDANESEBPP ---
Anes - Epidural Blood Patch PN Date/Time: 09/30/23 13:12 Consent: I have discussed with the patient/family/POA, the rationale of a lumbar epidural autologous blood patch for the treatment of post-dural puncture headache (spinal headache), including associated potential risks, benefits, complications and side effects. I have also discussed more conservative treatment options such as intravenous hydration, caffeine and non-prescription analgesics. The patient/family/POA, understand(s) and wish(es) to proceed with epidural autologous blood patch as treatment for the patient's post-dural puncture headache. Time-Out: A pre-procedural Time-Out was completed immediately before starting the procedure and confirmed: Patient Identification, Site, Procedure, Patient Position and the Availability of Requisite Equipment. Clinical Indications: Pt has slightly atypical signs of post dural puncture ROSENBAUM one week after her epidural and delivery. She has elected to try a blood patch for treatment. Risks and benefits discussed. Procedure done as below. 18ml of autologous blood drawn by CS from left hand and instilled slowly into epidural space. pt to slight inclined position with pillow under knees. no ROSENBAUM or complications. Instructed to no lifting anything heavier than baby. No bearing down. she will be discharged after 45-60 min no complications. Epidural Insertion Note Patient position: sitting Skin prep: chlorhexidine Needle: 18 gauge Tuohy-Schliff Technique: loss of resistance Skin anesthesia: lidocaine 1% Observations: tolerated well Complications: none
[2023-09-30 13:43] VITALS: BP 148/92; PULSE 58; PULSE 59; O2SAT 98
--- NOTE | 2023-09-30 13:54 | PC.NURSE ---
[id number]--Dr. Gonzalez to evaluate pt. post blood patch. Orders to DC home.
== END 2023-09-30 13:50 | disposition home or self-care (01) ==
LOC: ANHOBOP 12:36 → ANHOBPP 12:36
PROVIDERS: Visit Provider Obstetrics & Gynecology
DX: Z34.90 Encounter for supervision of normal pregnancy, unspecified, unspecified trimester (principal); Z3A.00 Weeks of gestation of pregnancy not specified
CPT/HCPCS: 62273; 99199

== ENCOUNTER 2024-02-05 11:34 | Emergency (ER) | payer OTHER, SELFPAY ==
--- NOTE | ~2024-02-05 | XR_ITS ---
EXAMINATION: XR chest 2V Exam Date/Time: 02/05/2024 14:30 CDT HISTORY: chest pain, GERD Comparison: None. RESULT: Lines, tubes, and devices: None. Lungs and pleura: Clear. Cardiomediastinal silhouette: Normal. Other: No acute osseous or upper abdominal finding. IMPRESSION: No acute cardiopulmonary process. Reviewed, dictated and finalized at location K.
[2024-02-05 11:34] VITALS: BP 146/80; PULSE 115; RESP 16; TEMP 36.6; O2SAT 100
--- NOTE | 2024-02-05 12:01 | ECG_ITS ---
Measurements Intervals [place] Rate: 99 P: 55 TN: 151 QRS: 53 QRSD: 86 T: 34 QT: 339 QTc: 435 Interpretive Statements SINUS RHYTHM POSSIBLE LEFT ATRIAL ENLARGEMENT INCOMPLETE RIGHT BUNDLE BRANCH BLOCK NONSPECIFIC T-WAVE ABNORMALITY- ANTEROLAT/INF LEADS BORDERLINE ECG NO PREVIOUS ECG AVAILABLE FOR COMPARISON Electronically Signed On 02-05-2024 18:39:34 CDT by Temo Rao D.O.
[2024-02-05] MEDS: KETOROLAC 30 MG/ML VIAL (*BKC) IV PUSH (12:38)
[2024-02-05] MEDS: BELLADONNA ALK/PHENOB ELIX 10 ML, MAG HYDROX/ALUMINUM HYD/SIMETH 30 ML, LIDOCAINE HCL 2... PO (12:39)
--- NOTE | 2024-02-05 12:39 | ED.GENADULT ---
HPI - General Adult General Chief complaint: Back Pain/Injury Stated complaint: Chest and Back pain Time Seen by Provider: 02/05/24 11:47 History of Present Illness HPI narrative: Patient is a 28-year-old female who presents ER with chest pain. Radiates to her back and left shoulder. Began early this morning around 1:00 a.m.. Symptoms worse with lying down flat in her better with propping herself up. Mild discomfort with swelling. Mild sore throat. No history of reflux. No family history of heart disease at young age. Patient has no exertional chest discomfort. She does have some mild discomfort with deep breath. No fevers or chills or sweats. Related Data Home Medications Medication Instructions Recorded Confirmed vits no.126-ferrous fum 1 tablet PO DAILY 09/21/23 09/22/23 28 mg iron-folic acid 800 mcg tablet (Classic ) Allergies Allergy/AdvReac Type Severity Reaction Status Date / Time No Known Allergies Allergy Verified 09/22/23 18:23 Review of Systems Review of Systems: All systems reviewed & are unremarkable except as noted in HPI and below Constitutional: Constitutional: Reports no additional constitutional complaints ENT: Denies nasal congestion and Reports sore throat Cardiovascular: Cardiovascular: Reports chest pain, Denies rapid heart rate and Reports radiating jaw, neck or arm pain Respiratory: Respiratory: Denies chest congestion, Denies cough, Denies dyspnea and Denies wheezing Gastrointestinal: Gastrointestinal: Reports no additional gastrointestinal complaints Genitourinary: Genitourinary: Reports no additional female genitourinary complaints [facility] Past Medical History Medical History (Updated 02/05/24 @ 17:17 by Clarke Pruett MD) Healthy female adult Surgical History Surgical History (Updated 02/05/24 @ 12:44 by Clarke Pruett MD) History of section Family History Family History Sibling Non-Hodgkin lymphoma Grandparent Oral cancer Social History Social History Smoking status: Never smoker Substance use: never Lack of Transportation: No Lack of Food: Never True Current Housing: I Have Housing Concerned About Future Housing: No Difficulty Paying Gas/Electric Bills: No Difficulty Paying for Meds: No Currently Unemployed: No Education: Master's Degree or Higher Difficulty w/ Childcare or Family Care: No Spiritual care concerns: No Exam Narrative: GENERAL: Well-appearing, well-nourished, and in no acute distress. HEAD: Normocephalic, atraumatic. EYES: PERRL and EOMI. ENT: Mucous membranes moist. mild posterior pharyngeal erythema with out tonsillar hypertrophy or exudate. Uvula midline and nonedematous. NECK: Mild prominence of lymphadenopathy in anterior cervical chain bilaterally. CHEST: Clear to auscultation. No respiratory distress. HEART: Regular rate and rhythm. Normal peripheral pulses. ABDOMEN: Soft, nontender, nondistended. EXTREMITIES: Normal range of motion. No edema. SKIN: Warm, dry, no rash. NEURO: Alert and oriented x3. PSYCH: Normal mood and affect. Course Course Emergency Course: Patient resting comfortably. Had mild improvement with Toradol. Her troponins were negative x2. EKG with nonspecific changes on the 1st EKG minimally repolarization abnormality on the 2nd. Chest x-ray normal. Patient felt appropriate for discharge home with scheduled anti-inflammatories. May have musculoskeletal pain versus pleurisy. Vital Signs Vital signs: Vital Signs Temperature 97.9 F 02/05/24 11:34 Pulse Rate 115 H 02/05/24 11:34 Respiratory Rate 16 02/05/24 11:34 Blood Pressure 146/80 H 02/05/24 11:34 Pulse Oximetry 100 02/05/24 11:34 Oxygen Delivery Room Air 02/05/24 11:34 Temperature 97.9 F 02/05/24 11:34 Pulse Rate 115 H 02/05/24 11
[2024-02-05 12:43] LABS: Basophils Percent Auto 0.2 % (0.2-1.2); Eosinophils Absolute Auto 0.1 K/mm3 (0-0.3); Eosinophils Percent Auto 0.8 % (0-4.4); Hematocrit 39.7 % (37.0-47.0); Hemoglobin 13.5 g/dL (12.0-15.0); Immature Granulocyte Absolute 0.03 K/mm3 (0.00-0.031); Immature Granulocyte Percent A 0.3 % (0-0.5); Lymphocytes Absolute Auto 1.02 K/mm3 (0.9-3.2); Lymphocytes Percent Auto 10.5 % (18.3-44.2); Mean Corpuscular Hemoglobin 30.8 pg (26-34); Mean Corpuscular Volume 90.4 fl (80-100); Mean Platelet Volume 9.4 fl (7.4-10.4); Monocytes Absolute Auto 1.2 K/mm3 (0.1-0.6); Monocytes Percent Auto 12.6 % (2.6-8.5); Neutrophils Absolute Auto 7.3 K/mm3 (1.3-6.7); Neutrophils Percent Auto 75.6 % (45.5-73.1); Platelet Count Result 216 k/mm3 (150-375); Red Blood Count 4.39 M/mm3 (4.2-5.4); Red Cell Distribution Width 12.1 % (11.5-14.5); White Blood Count 9.7 K/mm3 (4.5-10.0)
[2024-02-05 12:55] LABS: Prothrombin Time 13.9 Seconds (11.1-14.7)
[2024-02-05 12:56] LABS: Partial Thromboplastin Time 28.5 Seconds (22.3-36.8)
[2024-02-05 13:05] LABS: Troponin I 0.016 ng/mL (0.000-0.034)
[2024-02-05 13:13] LABS: D Dimer 0.39 ug/mL (<0.48)
[2024-02-05 14:30] LABS: Alanine Aminotransferase 17 U/L (6-35); Albumin Level 3.8 g/dL (3.5-5.1); Alkaline Phosphatase 53 U/L (38-126); Anion Gap 5 mmol/L (8-16); Aspartate Amino Transferase 25 U/L (14-36); Bilirubin,Total 0.7 mg/dL (0.2-1.3); Blood Urea Nitrogen 14 mg/dL (7-17); Calcium 9.1 mg/dL (8.4-10.2); Carbon Dioxide 22 mmol/L (22-30); Chloride 110 mmol/L (98-107); Estimated CRCL calculation 128 ml/min; Estimated Glomerular Filt Rate > 60; Glucose 115 mg/dL (65-110); Potassium 3.8 mmol/L (3.4-5.0); Sodium 137 mmol/L (137-145)
--- NOTE | 2024-02-05 15:01 | ECG_ITS ---
Measurements Intervals [place] Rate: 78 P: 52 ME: 157 QRS: 57 QRSD: 92 T: 37 QT: 355 QTc: 404 Interpretive Statements SINUS RHYTHM ST ELEVATION IN DIFFUSE LEADS, PROBABLY EARLY REPOLARIZATION BASELINE ARTIFACT- I, II, AVR, AVL, AVF, V4 BORDERLINE ECG COMPARED TO ECG 02/05/2024 12:18:21 NO SIGNIFICANT CHANGES Electronically Signed On 02-05-2024 18:48:23 CDT by Temo Rao D.O.
[2024-02-05 15:29] LABS: Troponin I < 0.012 ng/mL (0.000-0.034)
[2024-02-05 17:40] VITALS: BP 113/71; PULSE 103; RESP 16; O2SAT 98
== END 2024-02-05 17:40 | disposition home or self-care (01) ==
PROVIDERS: Emergency Provider Emergency Medicine
DX: R09.1 Pleurisy (principal); I45.10 Unspecified right bundle-branch block; R94.31 Abnormal electrocardiogram [ECG] [EKG]
CPT/HCPCS: 36415; 71046; 80053; 84484; 85025; 85380; 85610; 85730; 93005; 96374; 99284; A9270; J1885

== ENCOUNTER 2024-10-26 08:19 | Emergency (ER) | payer OTHER, SELFPAY ==
[2024-10-26 08:37] VITALS: BP 111/78; PULSE 111; RESP 16; TEMP 37.1; O2SAT 98
[2024-10-26 08:46] LABS: EDSTREPNEGPOS1 Negative (Negative)
--- NOTE | 2024-10-26 08:59 | ED.URI ---
HPI - URI/Sore Throat General Chief Complaint: Upper Respiratory Infection Stated Complaint: Sore Throat Time Seen by Provider: 10/26/24 08:59 Source: patient, RN notes reviewed and old records reviewed Mode of arrival: ambulatory Limitations: no limitations History of Present Illness HPI Narrative: 29-year-old female to [facility] with complaint of sore throat and congestion since yesterday. Patient endorses low-grade fever this started today. Patient states she has attempted to treat at home with Tylenol, ibuprofen, Benadryl, elder Rudolph supplements. Patient difficulty swallowing, shortness of breath, chest, allergies, pertinent medical history. Patient tachycardic triage. Patient able to tolerate fluids by mouth. Patient resting comfortably in exam room in no acute distress, appears acutely ill. Respirations even and nonlabored. Patient able to speak in complete sentences without difficulty. Related Data Allergies Allergy/AdvReac Type Severity Reaction Status Date / Time No Known Allergies Allergy Verified 10/26/24 08:35 Review of Systems Review of Systems: All systems reviewed & are unremarkable except as noted in HPI and below Constitutional: Constitutional: Reports as per HPI and Reports fever(s) Eyes: Eyes: Reports no additional eye complaints ENT: Reports as per HPI, Reports nasal congestion and Reports sore throat Cardiovascular: Cardiovascular: Reports no additional cardiovascular complaints, Denies chest pain and Denies dyspnea Respiratory: Respiratory: Reports no additional respiratory complaints, Denies cough and Denies dyspnea Musculoskeletal: Musculoskeletal: Reports no additional musculoskeletal complaints Neurologic: Reports system reviewed and no additional complaints, except as documented Psychiatric: Psychiatric: Reports no additional psychiatric complaints [facility] Past Medical History Medical History Healthy female adult Surgical History Surgical History History of section Family History Family History Sibling Non-Hodgkin lymphoma Grandparent Oral cancer Social History Social History Smoking status: Never smoker Substance use: never Lack of Transportation: No Lack of Food: Never True Current Housing: I Have Housing Concerned About Future Housing: No Difficulty Paying Gas/Electric Bills: No Difficulty Paying for Meds: No Currently Unemployed: No Education: Master's Degree or Higher Difficulty w/ Childcare or Family Care: No Spiritual care concerns: No Comments At the time of my signature, I reviewed and agree with the nursing past medical, surgical, social, and family history. There is no relevant family history pertinent to the patient complaint. Exam Const: General: cooperative, no acute distress, well developed, alert, ill appearing acutely, tired appearing, uncomfortable, well groomed and well nourished Nutritional Appearance: well nourished Orientation/consciousness: patient oriented x3 Limitations: no limitations HENMT: Head: normal to inspection Ears: external ears normal Face/Nose/Sinus: Normal external nose present, Abnormal mucous membranes and turbinates present boggy, No erythema, No edema, sinus tenderness and Facial tenderness on exam of face and sinuses Face and sinus: normal facial exam, no erythema and no edema Mouth: Yes Normal oral and palatal mucosa present Throat: posterior oropharynx abnormal erythema and postnasal drainage ( Purulent) Eyes: General: appearance normal, both eyes and all related structures Neck: Neck: normal visual inspection, full ROM and no meningeal signs Lymphatic: no lymphadenopathy noted and no lymphedema noted Chest: Chest palpation & inspection: normal inspection of the chest Resp: Effort & Inspection: normal respiratory effort and able to speak in complete sentences Auscultation: clear to auscultation bilaterally Cardio: Jugular venous distension: no JVD Rate: regular rate Rhythm: regular rhythm Back/Spine/Pelvis: Cervical Spine: cervical ROM normal Skin: General skin exam: normal color, no rashes or lesions noted and turgor normal Neuro: General: patient oriented x3, gait normal, moves all extremities and no meningeal signs Speech: normal speech Gait exam (Neuro): Normal gait present Extrem: General: normal to inspection, full ROM and capillary refill normal Psych: Appearance: grossly normal and well kempt Course Course Emergency Course: Some parts of this dictation were generated by voice recognition software and may contain typographical and/or grammatical inaccuracies. Level of Care: Express Care Visit Vital Signs Vital signs: Vital Signs Temperature 37.1 C 10/26/24 08:37 Pulse Rate 111 H 10/26/24 08:37 Respiratory Rate 16 10/26/24 08:37 Blood Pressure 111/78 10/26/24 08:37 Pulse Oximetry 98 10/26/24 08:37 Temperature 37.1 C 10/26/24 08:37 Pulse Rate 111 H 10/26/24 08:37 Respiratory Rate 16 10/26/24 08:37 Blood Pressure 111/78 10/26/24 08:37 Pulse Oximetry 98 10/26/24 08:37 reviewed MDM - URI/Sore Throat MDM Narrative Medical decision making narrative: 29-year-old female to [facility] with complaint of sore throat and congestion since yesterday. Patient endorses low-grade fever this started today. Patient states she has attempted to treat at home with Tylenol, ibuprofen, Benadryl, elder Rudolph supplements. Patient difficulty swallowing, shortness of breath, chest, allergies, pertinent medical history. Patient tachycardic triage. Patient able to tolerate fluids by mouth. Patient resting comfortably in exam room in no acute distress, appears acutely ill. Respirations even and nonlabored. Patient able to speak in complete sentences without difficulty. on exam, posterior oropharynx erythematous with purulent postnasal drainage; sinus tenderness, facial tenderness. Patient negative for strep in clinic. Culture sent. Patient is sitting comfortably in exam room nontoxic in appearance. Patient appropriate for outpatient treatment and follow-up. Discharge instructions reviewed with patient, as well as provided in writing per nursing staff. The instructions also include specific and strict return/GO TO THE ER as well as f/u information. All questions have been answered, and the patient deny any further questions with discharge and discharge plan. Some parts of this dictation were generated by voice recognition software and may contain typographical and/or grammatical inaccuracies. Differential Diagnosis Differential diagnosis: Likely upper respiratory infection, croup, otitis media, sinusitis, viral infection, bronchitis, influenza and pharyngitis Lab Data Labs: Lab Results 10/26/24 Range/Units 08:44 POC Grp A Strep Screen Negative (Negative) Discharge Plan Discharge Clinical Impression: Acute bacterial sinusitis Patient Disposition: Home, Self-Care Condition: Stable Instructions: Sinusitis (ED) Additional Instructions: Your rapid strep swab was negative today at [facility]. A throat culture will be sent to the laboratory for further testing. If the test is positive, you will receive a phone call within 48 hours and an appropriate antibiotic will be initiated at that time. -Alternate Tylenol and Motrin per package directions for fever or pain. -Antihistamine medication such as Benadryl at night and Zyrtec/Claritin/[place] during the day can help improve symptoms. -Use Flonase twice a day for 5 days then daily to help reduce the inflammation and dry up your sinuses. -You can also use Sudafed or Mucinex. Be sure to drink plenty of water with these medications at least 8 ounces with every dose and it is important to drink 8 to 10 glasses of water per day. Water is a natural decongestant -Eat and drink things that are easy to swallow, like tea or soup, or popsicles. -Oral rinses such as: Salt water gargles and/or may use topical anesthetic (eg. Chloraseptic spray) or lozenges to relieve dryness or throat pain). -Frequent hand washing or hand coin collector is one of the best ways to prevent spread of infection. -Using a vaporizer or humidifier at night will also help thin secretions and help with coughing up phlegm. -Follow up with primary care provider in 2-3 days if condition is not improving; or seek ER visit if you have trouble breathing, cannot drink enough fluids, have muffled voice, difficulty opening your mouth, or severe swelling. Prescriptions: New amoxicillin 875 mg tablet 875 mg PO Q12H Qty: 20 0RF Follow-up/Referrals: UNKNOWN,DOCTOR [Primary Care Provider] -
== END 2024-10-26 09:05 | disposition home or self-care (01) ==
PROVIDERS: Emergency Provider Nurse Practitioner Family
DX: J01.90 Acute sinusitis, unspecified (principal)
CPT/HCPCS: 87081; 87880; 99213; G0463

== ENCOUNTER 2025-01-04 00:39 | Day surgery (SDC) | payer OTHER, SELFPAY ==
[2024-12-26 10:32] VITALS: BMI 22.0
--- NOTE | 2024-12-26 10:38 | PC.NURSE ---
Report to the Outpatient Waiting Room, entrance under the green pavilion located off [facility], at time _0815_ on date _01/04/25_. Planned Procedure Time: _1015.? Time changes happen often and if your time is changed the preop area will call you the afternoon before. - You and your visitor will be asked to self-screen and do not enter if you have any COVID symptoms. Please call surgeon if you need to reschedule. - A mask is optional within the hospital at this time. Patients may have clear liquids (water, carbonated beverages, clear teas, apple juice) until 3 hours prior to surgery with a maximum of 20 ounces. - No food from midnight until time of surgery and no smoking. This includes no chewing gum, candy or mints. - Infants may have breast milk until 4 hours before surgery, formula 6 hours prior to surgery. - Children will be allowed to drink immediately following surgery.? If applicable, please bring a bottle or sippy cup to assist with drinking. Juice, water, soda, and popsicles are readily available.? For infants on formula, please bring formula the day of surgery.? Pacifiers are allowed. Take only the following medications with a SIP of water on the morning of surgery: __PAIN PILL IF NEEDED DO NOT STOP ANY OF YOUR OTHER PRESCRIPTION MEDICATIONS PRIOR TO SURGERY EXCEPT THE FOLLOWING Medications to discontinue per physician NONE Date to take last dose Please no make-up, nail chilean, hairspray, perfume, deodorant, or body powder the day of surgery.? No jewelry (including any body piercings) or valuables the day of surgery, leave them at home.? Please take a shower or bath the night before, or the morning of, surgery with an antibacterial soap.? Wear comfortable, loose fitting clothing.? Children are encouraged to wear pajamas. - Jewelry must be removed prior to entering the operating room.? Rings and piercings that are not removed may be cut off. - The hospital will not accept responsibility for valuables.? - Please leave all valuables, including medications, at home the day of surgery. If you are going home after surgery, a licensed stud driver must drive you home.? - NO public transportation without another adult if you receive anesthesia. - We recommend that an adult stay with you for 24 hours following discharge. - We also recommend that you do not drive, make important decision, drink alcoholic beverages, or take any drugs that were not prescribed by your health care provider for at least 24 hours after your discharge time. For Pediatric surgeries, we recommend two adults accompany the child home. Hold all vitamins and supplements for 3 days per anesthesiologist. Follow any additional instructions given to you from your surgeon. Telephone instructions given to __PATIENT_and asked if any additional questions and then verbalized understanding. Patient advised to call surgeon office or pre surgery nurse liaison [phone] if any additional questions.
--- NOTE | 2025-01-02 07:00 | PM.HPGS ---
History of Present Illness History of Present Illness Consent: Risks, benefits, and alternatives have been discussed and questions answered. Patient agrees to proceed with procedure. Chief complaint: Right Ureteral Kidney Stone Narrative: Romina Ferrari is a 29 year old female who had no prior history of urolithiasis until late November 2024. At that time she presented with a painful 12 mm right mid ureteral stone. A ureteral stent was placed. After discussion of therapeutic options she now elects for right ESWL. She is aware of the risks including, but not limited to, need for additional procedures, hematuria perinephric hematoma. Review of Systems Review of Systems: All systems reviewed & are unremarkable except as noted in HPI and below PMFSH Past Medical History Medical History Healthy female adult Surgical History Surgical History History of section Family History Family History Sibling Non-Hodgkin lymphoma Grandparent Oral cancer Social History Social History Social History: Surrogate medical decision maker: Richard Ferrari, spouse ([phone]). Code status: Full code. Smoking status: Never smoker Alcohol intake: current Alcohol use details: RARE USE Substance use: never Substance use type: does not use Do You Feel Safe in your Home?: Yes Lack of Transportation: No Lack of Food: Never True Current Housing: I Have Housing Concerned About Future Housing: No Difficulty Paying Gas/Electric Bills: No Difficulty Paying for Meds: No Currently Unemployed: No Education: Master's Degree or Higher Difficulty w/ Childcare or Family Care: No Additional living arrangements comments: Lives with spouse in their 15-month old daughter in [place]. Additional occupation/education comments: childhood teacher. Spiritual care concerns: No Meds Home Medications and Allergies Home Medications ?Medication ?Instructions ?Recorded ?Confirmed ?Type amoxicillin 875 mg-potassium 1 tablet PO Q12H #16 tabs 12/18/24 12/26/24 Rx clavulanate 125 mg tablet hydrocodone 5 mg-acetaminophen 325 1 tablet PO Q6H PRN Pain Rated 4-6 12/18/24 12/26/24 Rx mg tablet #7 tabs Allergies Allergy/AdvReac Type Severity Reaction Status Date / Time No Known Allergies Allergy Verified 12/26/24 10:31 Exam Const: General: no acute distress Resp: Effort & Inspection: normal respiratory effort GI: Inspection: non-distended GI Palp: No abdominal tenderness and No Guarding due to palpation present (GI) Auscultation: normal bowel sounds Assessment and Plan Assessment and plan (1) Hydronephrosis with urinary obstruction due to ureteral calculus: Code(s): N13.2 - Hydronephrosis with renal and ureteral calculous obstruction Status: Acute Assessment and Plan: right ESWL
[2025-01-04] VITALS (8 sets, daily range): BP systolic 102–120; BP diastolic 60–74; PULSE 48–77; RESP 10–18; TEMP 36.1–36.9; O2SAT 100
--- NOTE | ~2025-01-04 | XR_ITS ---
EXAMINATION: XR retrograde pyelo w/stent RT DATE: 01/04/2025 11:49 INDICATION: Right injury of the stent placement TECHNIQUE: 7 fluoroscopic images of the abdomen and pelvis were obtained during procedure performed chang Warren. Radiologist was not present for the imaging or procedure. The amount of fluoroscopy drew e used during this procedure was 0.9 minutes. Total DAP was 0.425 mGycm^2 COMPARISON: 12/18/2024 FINDINGS: Initial image redemonstrates the right internal carotid stent which is in expected position. This is subsequently removed with a catheter advanced into the right renal pelvis and retrograde contrast inj ection opacifying the mildly dilated right renal collecting system. Final image demonstrates placemen t of a new right internal ureteral stent with loops formed in an upper pole calyx of the right kidney . IMPRESSION: 1. Fluoroscopy utilized during right retrograde pyelogram and right internal ureteral stent placement which appears in expected position on the final image. See procedure note for further detail. Reviewed, dictated and finalized at location A. [facility]ER TYPE BAR AND SEGMENT IMPRESSION: 1. Fluoroscopy utilized during right retrograde pyelogram and right internal ur eteral stent placement which appears in expected position on the final image. S ee procedure note for further detail.
--- OUTSIDE RECORDS SUMMARY | 2025-01-04 00:42 | XMS_ITS | Clinical Summary ---
Author Organization [facility] Address [address] [place] [address] Care Team Providers Care Line Crew Supervisor Name Role Phone Dimas Linn MD Primary Care Provider [phone] Social History Tobacco Use Types Packs/Day Years Used Date Smoking Tobacco: Never Assessed Comments Unknown Sex and Gender Information Value Date Recorded Sex Assigned at Not on file Legal Sex Female 11:47 AM CDT Gender Identity Not on file Sexual Orientation Not on file Plan of Treatment Health Maintenance Due Date Last Done Comments Cervical Cancer Screening Pap Smear (Age 30 to 64) Every 3 Years 1993 Annual Physical 1996 Hepatitis C 2011 DTaP, Tdap and Td Vaccines (6 - Td or Tdap) 06/20/2018 06/20/2008, 04/27/1995, 03/11/1994, Additional history exists Cervical Cancer Screening Pap with HPV Testing (Age 30 to 64) Every 5 Years 2023 Cervical Cancer Screening with HPV 2023 COVID-19 Vaccine ( season) 2024 11/12/2021, 01/17/2021, 12/20/2020 Influenza Adult (#1) 2024 11/12/2021 Hepatitis B Vaccines Completed 08/03/1994, 1993, 1993 HPV Vaccines Aged Out No longer eligi ble based on patient's age to complete this topic Meningococcal B Vaccine Aged Out No l onger eligible based on patient's age to complete this topic Meningococcal Vaccine Aged Out No philly shasta eligible based on patient's age to complete this topic Pneumococcal Vaccine: Pediatrics (0 to 5 Years) and At-Risk Patients (6 to 64 Years) Aged Out No longer eligible based on patient's age to complete this topic RSV Immunizations Under 20 Months Aged Out No longer eligible based on patient's age to complete this topic Insurance [facility] Care Teams Line Crew Supervisor Relationship Specialty Start Date End Date Dimas Linn MD [address] [place] [id number] PCP - General INTERNAL MEDICINE 05/04/22
--- NOTE | 2025-01-04 06:37 | WPDHPUPDATE1 ---
History and Physical Update Update Date/Time: 01/04/25 06:37 History and Physical has been reviewed, including an updated exam of the patient. There are NO changes in the patient's condition. Risks, benefits, and alternatives have been discussed and questions answered. Patient agrees to proceed with procedure.
[2025-01-04] MEDS: LACTATED RINGERS 1,000 ML 30 ML IV CONT (09:30)
--- NOTE | 2025-01-04 09:52 | P.PNAN_ITS ---
Anes - Initial Pre Proc Eval Procedure: Operation Date: 01/04/25 11:00 Proposed Procedures p Cystoscopy, Right Ureteroscopy, Holmium Laser Lithotripsy, Right Stone Extraction, Possible Right Retrograde Pyelogram, Possible Right Stent Replacement - Parish Warren MD Date/Time: 01/04/25 09:52 Surgeon: Parish Warren MD Pre Op Diagnosis: Right Ureteral Kidney Stone Patient Data Age: 29 Gender: F Height: 1.68 m Weight: 62 kg Allergies Allergy/AdvReac Type Severity Reaction Status Date / Time No Known Allergies Allergy Verified 12/26/24 10:31 Home Medications ?Medication ?Instructions ?Recorded ?Confirmed ?Type amoxicillin 875 mg-potassium 1 tablet PO Q12H #16 tabs 12/18/24 12/26/24 Rx clavulanate 125 mg tablet hydrocodone 5 mg-acetaminophen 325 1 tablet PO Q6H PRN Pain Rated 4-6 12/18/24 12/26/24 Rx mg tablet #7 tabs Patient hx anesthesia problems: none Family hx anesthesia problems: none Results Review: All pre-operative results and documents have been reviewed as part of the pre- operative evaluation. [facility] Past Medical History Medical History Healthy female adult Surgical History Surgical History History of section Family History Family History Sibling Non-Hodgkin lymphoma Grandparent Oral cancer Social History Social History Social History: Surrogate medical decision maker: Richard Ferrari, spouse ([phone]). Code status: Full code. Smoking status: Never smoker Alcohol intake: current Alcohol use details: RARE USE Substance use: never Substance use type: does not use Do You Feel Safe in your Home?: Yes Lack of Transportation: No Lack of Food: Never True Current Housing: I Have Housing Concerned About Future Housing: No Difficulty Paying Gas/Electric Bills: No Difficulty Paying for Meds: No Currently Unemployed: No Education: Master's Degree or Higher Difficulty w/ Childcare or Family Care: No Additional living arrangements comments: Lives with spouse in their 15-month old daughter in [place]. 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 Spiritual care concerns: No Anes - Eval Final PreProcedure Day of Procedure 01/04/25 09:52 Patient weight: normal Heart: regular rate and rhythm Lungs: clear to auscultation Airway: Mallampati scale class 1 Neurological: alert and oriented Last oral intake: >/= 8 hours ASA classification: I Emergent: no Anesthetic plan: proceed Anesthesia type and monitoring: general LMA and standard monitoring Results Review: All pre-operative results and documents have been reviewed as part of the pre- operative evaluation. Informed Consent: The patient's anesthetic plan and its attendant risks and benefits were discussed with the patient/family/POA. Questions were solicited and answers provided to the satisfaction of the patient/family/POA.
[2025-01-04] MEDS: ceFAZolin 2 GM/D5W 50 ML 2 GM/50 ML BAG IVPB (11:00)
--- NOTE | 2025-01-04 12:01 | W.PM.PROC2 ---
Procedure Note - Detailed Date of Procedure 01/04/25 Pre-op Diagnosis Right Ureteral Stone Post-op Diagnosis Same Procedure Performed Cystoscopy, right ureteral stent removal, right ureteroscopy with laser lithotripsy and stone extraction, right retrograde pyelogram and stent replacement Surgeon Parish Warren MD Anesthesia General Description of Procedure Patient is brought to the operative suite where she is prepped draped in routine sterile fashion while in dorsal lithotomy position after the uneventful induction of a general LMA anesthetic. A 21 F rigid cystoscope was used to remove her right ureteral stent with ease. A 0.035 in glidewire was advanced into the right renal pelvis. The distal ureter is dilated with an 8 F 10 F dilator. Ureteroscopy was undertaken with a short tapered semi-rigid ureteral scope. She has a long skinny stone in her right mid ureter. With some proximal displacement I can see that it is calcified. There are no additional identifiable stones. Using a 200 micron Guero laser fiber the stone is dusted and all pieces larger than 2 mm were removed. A retrograde pyelogram was obtained that shows no evidence of extravasation. A 4.8 F variable length stent was appropriately positioned with the proximal coil in renal pelvis and distal coil in the bladder. Scopes and wires removed and she was taken to the recovery room in good condition. Drains No Packing No Pathology None sent Complications No immediate complications Condition Stable
[2025-01-04 12:19] LABS: BEDSIDEPREGUCG Negative (Negative)
[2025-01-04] MEDS: oxyCODONE HCL (*CRX) 5 MG TAB IR PO (13:14)
== END 2025-01-04 13:41 | disposition home or self-care (01) ==
PROVIDERS: Visit Provider Urology
PROC: (CPT 52352; principal; 2025-01-04 11:00)
DX: N20.1 Calculus of ureter (principal); Z79.891 Long term (current) use of opiate analgesic; Z80.8 Family history of malignant neoplasm of other organs or systems; Z80.7 Family history of other malignant neoplasms of lymphoid, hematopoietic and related tissues
CPT/HCPCS: 52356; 74420; 82365; 88300; A9270; J0690; J1100; J2003; J2250; J2405; J2704; J3010; J7120